=== PATIENT | male | born 1985 | race Caucasian/White ===

== ENCOUNTER 2018-03-10 15:11 | Emergency (ER) | payer SELFPAY ==
[~2018-03-10] VITALS: Ht 172.7 cm; Wt 100.0 kg
[2018-03-10 15:15] VITALS: BP 127/89
[2018-03-10] MEDS ORDERED: PRED20TA PO (15:34)
== END 2018-03-10 15:56 | disposition home or self-care (01) ==
LOC: ER 15:12
DX: G51.0 Bell's palsy (principal); R63.1 Polydipsia; R35.0 Frequency of micturition
CPT/HCPCS: 82948; 99283